=== PATIENT | female | born 1980 | race Caucasian/White ===

== ENCOUNTER → 2024-02-22 16:21 | Outpatient (REF) | payer OTHER, SELFPAY | LOC: HWWDC 16:21 | PROVIDERS: ATTENDING PHYSICIAN Nurse Practitioner Family | DX: Z12.31 Encounter for screening mammogram for malignant neoplasm of breast (principal) | CPT/HCPCS: 77063; 77067 ==

== ENCOUNTER → 2025-04-11 09:19 | Outpatient (REF) | payer OTHER, SELFPAY | LOC: HWWDC 09:19 | PROVIDERS: ATTENDING PHYSICIAN Nurse Practitioner Family | DX: Z12.31 Encounter for screening mammogram for malignant neoplasm of breast (principal) | CPT/HCPCS: 77063; 77067 ==